=== PATIENT | female | born 1995 | race African-American/Black ===

== ENCOUNTER 2024-04-22 22:24 | Emergency (ER) | payer MEDICAID ==
[~2024-04-22] VITALS: Ht 167.6 cm; Wt 69.1 kg
[2024-04-22 22:54] VITALS: PULSE 86; RESP 14; O2SAT 100
[2024-04-22] MEDS: METOCLOPRAMIDE HCL 10 MG TAB PO ONE (22:56)
[2024-04-22 22:57] LABS: Basophils # (auto) 0 10 ^3/uL (0-0.2); Basophils % (auto) 0.3 % (0.0-2.0); Eosinophils # (auto) 0.1 10 ^3/uL (0-0.8); Eosinophils % (auto) 0.8 % (0.0-7.0); Hematocrit 33.1 % (36.0-46.0); Hemoglobin 11.2 g/dL (12.2-16.2); Lymphocytes # (auto) 2.1 10 ^3/uL (0.4-5.4); Lymphocytes % (auto) 27.7 % (10.0-50.0); Mean Corpuscular Hemoglobin 29.1 pg (28.0-32.0); Mean Corpuscular Hgb Conc. 33.8 g/dL (32.0-36.0); Mean Corpuscular Volume 86.2 fL (80.0-100.0); Monocytes # (auto) 0.6 10 ^3/uL (0-1.3); Monocytes % (auto) 8.1 % (0.0-12.0); Neutrophils # (auto) 4.7 10 ^3/uL (1.6-8.6); Neutrophils % (auto) 63.1 % (37.0-80.0); Platelet Count (auto) 387 10^3/uL (140-450); Red Blood Cells 3.84 10^6/uL (4.0-5.20); Red Cell Distribution Width 16.3 % (11.8-14.3); White Blood Cell 7.4 10^3/uL (4.4-10.8)
--- NOTE | 2024-04-22 22:57 | ED.PDOC ---
History of Present Illness HPI Comments 29 y/o F presents with c/o nausea, vomiting, and abdominal pain, today. Patient reports being 17x weeks , currently, and having unprovoked and sudden onset symptoms at around 1640, this evening. Patient comments on vomiting a total of 2x since onset and pain being around her suprapubic region and non- radiating that she describes it as "cramping" in quality. Patient endorses this being her first ([id number]) and having current care and routine ultrasound imaging. Patient endorses no recent injuries, stress, sick contact, travel, spoiled food, substance use/exposure, or sexual activity. Patient denies having any vaginal bleeding or discharge, hematemesis, diarrhea, fever, chills, or other associated symptoms or modifiers at this time. Chief Complaint: Abdominal Pain Time Seen by MD: 22:40 Primary Care Provider: NIDIA Reviewed Notes: Nurses Notes, Medications, Allergies Allergies: Coded Allergies: NO KNOWN ALLERGIES (Unverified , 08/02/11) Home Meds Active Scripts Metoclopramide Hcl (Reglan) 5 Mg Tab, 5 MG PO Q6HPRN PRN for 14 Days, #40 TAB Prov:CATA CHAVEZ MD 04/23/24 Information Source: Patient Mode of Arrival: Ambulatory Severity: Moderate Timing: Hours Duration: Intermittent Prehospital treatment: None Past Medical History PAST MEDICAL HISTORY: Denies Surgical History: Denies all surgeries YARN HANDLER History: Denies all YARN HANDLER Hx 1 Para 0 AB 0 LMP 12/14/23 Family History Family History: Unknown Social History Smoker: Non-Smoker Alcohol: Denies ETOH Use Drugs: Denies Drug Use Lives In: Home Constitutional: denies: chills, diaphoresis, fatigue, fever, malaise, sweats, weakness, others EENTM: denies: blurred vision, double vision, ear bleeding, ear discharge, ear drainage, ear pain, ear ringing, eye pain, eye redness, hearing loss, mouth pain, mouth swelling, nasal discharge, nose bleeding, nose congestion, nose pain, photophobia, tearing, throat pain, throat swelling, voice changes, others Respiratory: denies: cough, hemoptysis, orthopnea, SOB at rest, shortness of breath, SOB with excertion, stridor, wheezing, others Cardiovascular: denies: chest pain, dizzy spells, diaphoresis, Dyspnea on exertion, edema, irregular heart beat, left arm pain, lightheadedness, palpitations, PND, syncope, others Gastrointestinal: reports: abdominal pain, nausea, vomiting; denies: abdomen distended, blood streaked bowels, constipated, diarrhea, dysphagia, difficulty swallowing, hematemesis, melena, poor appetite, poor fluid intake, rectal bleeding, rectal pain, others Genitourinary: denies: abnormal vagina bleeding, burning, dyspareunia, dysuria, flank pain, frequency, hematuria, incontinence, pain, , vagina discharge, urgency, others Neurological: denies: dizziness, fainting, headache, left sided numbness, left sided weakness, numbness, paresthesia, pre-existing deficit, right sided numbness, right sided weakness, seizure, speech problems, tingling, tremors, weakness, others Musculoskeletal: denies: back pain, gout, joint pain, joint swelling, muscle pain, muscle stiffness, neck pain, others Integumetry: denies: bruises, change in color, change in hair/nails, dryness, laceration, lesions, lumps, rash, wounds, others Allergic/Immunocompromised: denies: Difficulty Healing, Frequent Infections, Hives, Itching, others Hematologic/Lymphatic: denies: anemia, blood clots, easy bleeding, easy bruising, swollen glands, others Endocrine: denies: excessive hunger, excessive sweating, excessive thirst, excessive urination, flushing, intolerance to cold, intolerance to heat, unexplained weight gain, unexplained weight loss, others Psychiatric: denies: anxiety, bipolar disorder, depression, hopeless, panic disorder, schizophrenia, sleepless, suicidal, others All Other Systems: Reviewed and Negative Physical Exam General Appearance: Mild Distress, Normal HEENT: Normal ENT Inspection, Pharynx Normal, TMs Normal Neck: Full Range of Motion, Non-Tender, Normal, Normal Inspection Respiratory: Chest Non-Tender, Lungs Clear, No Accessory Muscle Use, No Respiratory Distress, Normal Breath Sounds Cardiovascular: No Edema, No JVD, No Murmur, No Gallop, Normal Peripheral Pulses, Regular Rate/Rhythm Breast Exam: Deferred Gastrointestinal: Non Tender, Soft, Other (soft gravid nontender uterus) Genitalia: Deferred Pelvic: Deferred Rectal: Deferred Extremities: No calf tenderness, Normal capillary refill, Normal inspection, Normal range of motion, Non-tender, No pedal edema Musculoskeletal : Apperance: Normal Neurologic: Alert, dental mold maker II-XII nml as Tested, No Motor Deficits, Normal Affect, Normal Mood, No Sensory Deficits Cerebellar Function: Normal Reflexes: Normal Skin: Dry, Normal Color, Warm Lymphatic: No Adenopathy Was a procedure done? Was a procedure done?: No Differential Dx Considerations may include: , gastritis, gastroenteritis, viral syndrome, spoiled food X-Ray, Labs, Meds, VS Vital Signs Date Time Temp Pulse Resp B/P (MAP) Pulse Ox O2 Delivery O2 Flow Rate FiO2 04/23/24 01:05 97.9 84 15 110/75 (87) 100 97.9 04/22/24 22:54 86 14 100 Room Air* 0 21 04/22/24 22:54 98.4 86 14 106/71 (83) 100 98.4 04/22/24 22:28 98.2 93 17 107/79 (88) 100 Lab Test 04/22/24 22:40 04/22/24 22:31 Range/Units White Blood Count 7.4 4.4-10.8 10^3/uL Red Blood Count 3.84 L 4.0-5.20 10^6/uL Hemoglobin 11.2 L 12.2-16.2 g/dL Hematocrit 33.1 L 36.0-46.0 % Mean Corpuscular Volume 86.2 80.0-100.0 fL Mean Corpuscular Hemoglobin 29.1 28.0-32.0 pg Mean Corpuscular Hemoglobin Concent 33.8 32.0-36.0 g/dL Red Cell Distribution Width 16.3 H 11.8-14.3 % Platelet Count 387 140-450 10^3/uL Mean Platelet Volume 7.3 6.9-10.8 fL Neutrophils (%) (Auto) 63.1 37.0-80.0 % Lymphocytes (%) (Auto) 27.7 10.0-50.0 % Monocytes (%) (Auto) 8.1 0.0-12.0 % Eosinophils (%) (Auto) 0.8 0.0-7.0 % Basophils (%) (Auto) 0.3 0.0-2.0 % Neutrophils # (Auto) 4.7 1.6-8.6 10 ^3/uL Lymphocytes # (Auto) 2.1 0.4-5.4 10 ^3/uL Monocytes # (Auto) 0.6 0-1.3 10 ^3/uL Eosinophils # (Auto) 0.1 0-0.8 10 ^3/uL Basophils # (Auto) 0 0-0.2 10 ^3/uL Nucleated Red Blood Cells 0.0 % Sodium Level 138 136-145 mmol/L Potassium Level 3.6 3.5-5.1 mmol/L Chloride Level 106 98-107 mmol/L Carbon Dioxide Level 24 20-31 mmol/L Anion Gap 8 5-15 Blood Urea Nitrogen 8 L 9-23 mg/dL Creatinine 0.63 0.550-1.02 mg/dL Glomerular Filtration Rate Calc 125 >90 mL/min BUN/Creatinine Ratio 12.7 10.0-20.0 Serum Glucose 91 74-106 mg/dL Calcium Level 9.9 8.7-10.4 mg/dL Total Bilirubin 0.5 0.2-1.0 mg/dL Aspartate Amino Transferase (AST) 14 13-40 U/L Alanine Aminotransferase (ALT) < 9 7-40 U/L Alkaline Phosphatase 45 L 46-116 U/L Total Protein 7.1 5.7-8.2 g/dL Albumin 4.3 3.2-4.8 g/dL Lipase 41 12-53 U/L Urine Color Colorless Yellow Urine Clarity Turbid H Clear Urine pH 8.0 5.0-9.0 Urine Specific [place] 1.020 1.001-1.035 Urine Protein Trace H Negative Urine Ketones 3+ H Negative Urine Blood Negative Negative /uL Urine Nitrite Negative Negative Urine Bilirubin Negative Negative Urine Urobilinogen Normal Negative mg/dL Urine Leukocyte Esterase Negative Negative /uL Urine RBC 3 0 - 4 /hpf Urine WBC 2 0 - 5 /hpf Urine Squamous Epithelial Cells Few <5 /hpf Urine Amorphous Crystals Mod None Seen /hpf Urine Bacteria Few H None Seen /hpf Urine Mucus Few None Seen Urine Glucose Normal Normal mg/dL Current Medications Medications (Trade) Dose Ordered Sig/Karen Route Start Time Stop Time Status Last Admin Metoclopramide HCl (Reglan Tablet) 5 mg ONCE ONCE PO 04/22/24 22:45 04/22/24 22:46 DC 04/22/24 22:56 [place] [id number] Ph: [phone] DIAGNOSTIC IMAGING Diagnostic Imaging Report : [id number] Signed PATIENT: TK GARCIA ACCT: [id number] UNIT: [id number] : 1995 LOC: ER ROOM / BED: / AGE / SEX: 29 / F ADM STATUS: REG ER SERVICE 07 ORDERING PHYSICIAN: CATA CHAVEZ MD PROCEDURE(s): OBUS - OB ULTRASOUND COMP GTR 14 WKS REASON: pain, 17 wk ORDER NUMBER(s): [id number], ACCESSION NUMBER(s): [id number] LIMITED OB ULTRASOUND > 14 WKS: HISTORY: pain, 17 wk TECHNIQUE: Multiple real-time grayscale images of the gravid uterus with duplex Doppler color flow and M-mode spectral analysis. FINDINGS: IUP single live fetus at 19 weeks 0 days based on composite averages of the BPD, head circumference, abdominal circumference and femur length Estimated weight 254 grams heart rate 162 beats per minute presentation is cephalic. Placenta is anterior. Cervix measures 3.4 cm and appears closed. EDILIA is adequate. IMPRESSION: IUP single live fetus at 19 weeks 0 days AUA corresponding to an DEBBIE of September 17, 2024 ATED BY: MIMA ROBERT DO DICTATED DATE/TIME: 04/23/2450 SIGNED BY: MIMA ROBERT DO SIGNED DATE/TIME: 04/23/2450 CC: Time of 1ST Reevaluation: 23:10 Reevaluation 1ST: Unchanged Patient Education/Counseling: Diagnosis, Treatment Family Education/Counseling: No Family Present Additional Information I personally reviewed and interpreted the ultrasound and lab findings Departure 1 Departure Time of Disposition: 01:19 Impression: Primary Impression: 19 weeks gestation of Additional Impression: Nausea & vomiting Disposition: 01 HOME / SELF CARE / HOMELESS Condition: Stable e-Prescriptions Metoclopramide Hcl (Reglan) 5 Mg Tab 5 MG PO Q6HPRN PRN for 14 Days, #40 TAB Prov: CATA CHAVEZ MD 04/23/24 Discharged With: Self Critical Care Note Critical Care Time?: No Stability Stability form required: No Heart Score Heart Score: Heart Score Response (Comments) Value History N/A 0 EKG N/A 0 Age N/A 0 Risk Factors N/A 0 Troponin N/A 0 Total 0 I personally scribed for CATA CHAVEZ MD ([email or web address]) on 04/22/24 at 22:57. Electronically submitted by Serjio Daley ([email or web address]). I personally scribed for CATA CHAVEZ MD ([email or web address]) on 04/23/24 at 00:59. Electronically submitted by Serjio Dalye ([email or web address]). CATA CHAVEZ MD Apr 22, 2024 22:57
[2024-04-22] MEDS: ACETAMINOPHEN 500 MG TAB PO ONE (23:13)
[2024-04-22 23:16] LABS: Albumin 4.3 g/dL (3.2-4.8); Alkaline Phosphatase 45 U/L (46-116); Anion Gap 8 (5-15); Aspartate Aminotransferase 14 U/L (13-40); BUN/Creatinine Ratio 12.7 (10.0-20.0); Blood Urea Nitrogen 8 mg/dL (9-23); Calcium 9.9 mg/dL (8.7-10.4); Carbon Dioxide 24 mmol/L (20-31); Chloride 106 mmol/L (98-107); Glucose 91 mg/dL (74-106); Lipase 41 U/L (12-53); Potassium 3.6 mmol/L (3.5-5.1); Sodium 138 mmol/L (136-145)
[2024-04-22 23:17] LABS: Bilirubin, Total 0.5 mg/dL (0.2-1.0); Total Protein 7.1 g/dL (5.7-8.2)
[2024-04-22 23:25] LABS: Urine Amorphous Crystal MOD /hpf (None Seen); Urine Bacteria FEW /hpf (None Seen); Urine Blood Negative /uL (Negative); Urine Clarity Turbid (Clear); Urine Color Colorless (Yellow); Urine Mucus FEW (None Seen); Urine Protein, UAD TRACE (Negative); Urine Urobilinogen Normal (Negative); Urine WBC 2 /hpf (0 - 5)
[2024-04-22 23:31] LABS: Alanine Aminotransferase < 9 U/L (7-40)
--- NOTE | 2024-04-23 00:53 | DVH ---
LIMITED OB ULTRASOUND > 14 WKS: HISTORY: pain, 17 wk TECHNIQUE: Multiple real-time grayscale images of the gravid uterus with duplex Doppler color flow an d M-mode spectral analysis. FINDINGS: IUP single live fetus at 19 weeks 0 days based on composite averages of the BPD, head circumference, abdominal circumference and femur length Estimated weight 254 grams heart rate 162 beats per minute presentation is cephalic. Placenta is anterior. Cervix measures 3.4 cm and appears closed. EDILIA is adequate. IMPRESSION: IUP single live fetus at 19 weeks 0 days AUA corresponding to an DEBBIE of September 17, 2024
[2024-04-23] MEDS ORDERED: METO5TAB67 PO (01:04)
[2024-04-23 01:05] VITALS: BP 110/75; PULSE 84; RESP 15; TEMP 97.9; O2SAT 100
== END 2024-04-23 01:13 | disposition home or self-care (01) ==
LOC: ER 22:24
DX: O21.9 Vomiting of pregnancy, unspecified (principal); R10.9 Unspecified abdominal pain; Z3A.19 19 weeks gestation of pregnancy
CPT/HCPCS: 36415; 76805; 80053; 81001; 83690; 85025; 99284; J8597

== ENCOUNTER 2024-06-28 03:49 | Emergency (ER) | payer MEDICAID ==
[~2024-06-28] VITALS: Ht 170.2 cm; Wt 75.5 kg
[~2024-06-28 03:49] MED LIST: METO5TAB67 PO
[2024-06-28 03:50] VITALS: BP 121/80; PULSE 109; O2SAT 100
--- NOTE | 2024-06-28 04:08 | ED.PDOC ---
GI ASSESSMENT HPI Comments 29 year old female presents to the ED with a chief complaint of abdominal pain onset yesterday. Patient states she began experiencing abdominal pain, described as burning sensation, yesterday morning as well as nausea/vomiting. Patient woke up this morning and noticed blood in vomit. She is currently 28 weeks , went to labor and delivery prior to ED arrival and was cleared. P:0. Denies any past medical history as well as diarrhea, chest pain, shortness of breath, dysuria, hematuria. No other symptoms or modifying factors present at this time. Chief Complaint: Nausea/Vomiting Time Seen by MD: 03:57 Primary Care Provider: NIDIA Reviewed Notes: Medications, Allergies Allergies: Coded Allergies: NO KNOWN ALLERGIES (Unverified , 08/02/11) Home Meds Active Scripts Metoclopramide Hcl (Reglan) 5 Mg Tab, 5 MG PO Q6HPRN PRN for 14 Days, #40 TAB Prov:CATA CHAVEZ MD 04/23/24 Information Source: Patient Mode of Arrival: Ambulatory Timing: Hours Duration: Since onset Prehospital treatment: None Quality: Burning Vomitus: Streaking Blood Severity: Moderate Recent: None Recent Hx of: Current (28 weeks) Pain Location: Epigastric, Periumbilical Associated sign and symptoms: Nausea, Vomiting, Hematemesis Past Medical History PAST MEDICAL HISTORY: Denies Surgical History: Denies all surgeries HISTORIC SITES REGISTRAR History: Denies all HISTORIC SITES REGISTRAR Hx Family History Family History: Unknown Social History Smoker: Non-Smoker Alcohol: Denies ETOH Use Drugs: Denies Drug Use Lives In: Home Constitutional: denies: chills, diaphoresis, fatigue, fever, malaise, sweats, weakness, others EENTM: denies: blurred vision, double vision, ear bleeding, ear discharge, ear drainage, ear pain, ear ringing, eye pain, eye redness, hearing loss, mouth pain, mouth swelling, nasal discharge, nose bleeding, nose congestion, nose pain, photophobia, tearing, throat pain, throat swelling, voice changes, others Respiratory: denies: cough, hemoptysis, orthopnea, SOB at rest, shortness of breath, SOB with excertion, stridor, wheezing, others Cardiovascular: denies: chest pain, dizzy spells, diaphoresis, Dyspnea on exertion, edema, irregular heart beat, left arm pain, lightheadedness, palpita tions, PND, syncope, others Gastrointestinal: reports: abdominal pain, hematemesis, nausea, vomiting; denies: abdomen distended, blood streaked bowels, constipated, diarrhea, dysphagia, difficulty swallowing, melena, poor appetite, poor fluid intake, rectal bleeding, rectal pain, others Genitourinary: denies: abnormal vagina bleeding, burning, dyspareunia, dysuria, flank pain, frequency, hematuria, incontinence, pain, , vagina discharge, urgency, others Neurological: denies: dizziness, fainting, headache, left sided numbness, left sided weakness, numbness, paresthesia, pre-existing deficit, right sided numbness, right sided weakness, seizure, speech problems, tingling, tremors, weakness, others Musculoskeletal: denies: back pain, gout, joint pain, joint swelling, muscle pain, muscle stiffness, neck pain, others Integumetry: denies: bruises, change in color, change in hair/nails, dryness, laceration, lesions, lumps, rash, wounds, others Allergic/Immunocompromised: denies: Difficulty Healing, Frequent Infections, Hives, Itching, others Hematologic/Lymphatic: denies: anemia, blood clots, easy bleeding, easy bruising, swollen glands, others Endocrine: denies: excessive hunger, excessive sweating, excessive thirst, excessive urination, flushing, intolerance to cold, intolerance to heat, unexplained weight gain, unexplained weight loss, others Psychiatric: denies: anxiety, bipolar disorder, depression, hopeless, panic disorder, schizophrenia, sleepless, suicidal, others All Other Systems: Reviewed and Negative Physical Exam General Appearance: No Apparent Distress, Normal HEENT: Normal ENT Inspection, Pharynx Normal, TMs Normal Neck: Full Range of Motion, Non-Tender, Normal, Normal Inspection Respiratory: Chest Non-Tender, Lungs Clear, No Accessory Muscle Use, No Respiratory Distress, Normal Breath Sounds Cardiovascular: No Edema, No JVD, No Murmur, No Gallop, Normal Peripheral Pulses, Regular Rate/Rhythm Breast Exam: Deferred Gastrointestinal: No Organomegaly, No Pulsatile Mass, Normal Bowel Sounds, Tenderness Genitalia: Deferred Pelvic: Deferred Rectal: Deferred Extremities: No calf tenderness, Normal capillary refill, Normal inspection, Normal range of motion, Non-tender, No pedal edema Musculoskeletal : Apperance: Normal Neurologic: Alert, associate doctor II-XII nml as Tested, No Motor Deficits, Normal Affect, Normal Mood, No Sensory Deficits Cerebellar Function: Normal Reflexes: Normal Skin: Dry, Normal Color, Warm Lymphatic: No Adenopathy Was a procedure done? Was a procedure done?: No GI differential Dx Differential Diagnosis: Gastroenteritis, Dehydration, Electrolyte Imbalance, Food Poisoning, Hypovolemia, Malnutrition X-Ray, Labs, Meds, VS Vital Signs Date Time Temp Pulse Resp B/P (MAP) Pulse Ox O2 Delivery O2 Flow Rate FiO2 06/28/24 03:50 98.3 109 18 121/80 (94) 100 Lab Test 06/28/24 04:04 06/28/24 04:00 Range/Units White Blood Count 10.1 4.4-10.8 10^3/uL Red Blood Count 3.47 L 4.0-5.20 10^6/uL Hemoglobin 9.4 L 12.2-16.2 g/dL Hematocrit 29.3 L 36.0-46.0 % Mean Corpuscular Volume 84.2 80.0-100.0 fL Mean Corpuscular Hemoglobin 27.2 L 28.0-32.0 pg Mean Corpuscular Hemoglobin Concent 32.3 32.0-36.0 g/dL Red Cell Distribution Width 15.8 H 11.8-14.3 % Platelet Count 368 140-450 10^3/uL Mean Platelet Volume 7.4 6.9-10.8 fL Neutrophils (%) (Auto) 62.5 37.0-80.0 % Lymphocytes (%) (Auto) 26.5 10.0-50.0 % Monocytes (%) (Auto) 9.7 0.0-12.0 % Eosinophils (%) (Auto) 0.8 0.0-7.0 % Basophils (%) (Auto) 0.5 0.0-2.0 % Neutrophils # (Auto) 6.3 1.6-8.6 10 ^3/uL Lymphocytes # (Auto) 2.7 0.4-5.4 10 ^3/uL Monocytes # (Auto) 1.0 0-1.3 10 ^3/uL Eosinophils # (Auto) 0.1 0-0.8 10 ^3/uL Basophils # (Auto) 0 0-0.2 10 ^3/uL Nucleated Red Blood Cells 0.0 % Sodium Level 136 136-145 mmol/L Potassium Level 3.8 3.5-5.1 mmol/L Chloride Level 105 98-107 mmol/L Carbon Dioxide Level 23 20-31 mmol/L Anion Gap 8 5-15 Blood Urea Nitrogen 5 L 9-23 mg/dL Creatinine 0.55 0.550-1.02 mg/dL Glomerular Filtration Rate Calc 129 >90 mL/min BUN/Creatinine Ratio 9.1 L 10.0-20.0 Serum Glucose 93 74-106 mg/dL Calcium Level 10.1 8.7-10.4 mg/dL Total Bilirubin 0.5 0.2-1.0 mg/dL Aspartate Amino Transferase (AST) 34 13-40 U/L Alanine Aminotransferase (ALT) 26 7-40 U/L Alkaline Phosphatase 97 46-116 U/L Total Protein 6.8 5.7-8.2 g/dL Albumin 3.8 3.2-4.8 g/dL Urine Color Light-yellow Yellow Urine Clarity Turbid H Clear Urine pH 6.5 5.0-9.0 Urine Specific [place] 1.021 1.001-1.035 Urine Protein Trace H Negative Urine Ketones Negative Negative Urine Blood Negative Negative /uL Urine Nitrite Negative Negative Urine Bilirubin Negative Negative Urine Urobilinogen Normal Negative mg/dL Urine Leukocyte Esterase Trace Negative /uL Urine RBC 4 0 - 4 /hpf Urine Microscopic WBC 4 0-5 /HPF Urine Squamous Epithelial Cells Few <5 /hpf Urine Calcium Oxalate Crystals Few None Seen Urine Bacteria Few H None Seen /hpf Urine Mucus Few None Seen Urine Glucose Normal Normal mg/dL Current Medications Medications (Trade) Dose Ordered Sig/Karen Route Start Time Stop Time Status Last Admin Sodium Chloride 1,000 ml @ 1,000 mls/hr Q1H ONCE IV 06/28/24 04:00 06/28/24 04:59 DC 06/28/24 04:58 Ondansetron HCl (Zofran) 4 mg ONCE ONCE IV 06/28/24 04:00 06/28/24 04:01 DC 06/28/24 04:59 Famotidine (Pepcid Injection) 20 mg ONCE ONCE IV 06/28/24 04:00 06/28/24 04:01 DC 06/28/24 04:58 Time of 1ST Reevaluation: 04:27 Reevaluation 1ST: Unchanged Patient Education/Counseling: Diagnosis, Treatment, Prognosis Family Education/Counseling: No Family Present Additional Information The following tests were ordered, and results were reviewed by me: CBC, CMP, UA I discussed treatment and results with medical personnel, patient Departure 1 Departure Time of Disposition: 05:02 (Patient likely with viral gastroenteritis. Patient is now feeling better after receiving fluids and Zofran. We will discharge patient home with outpatient follow up) Impression: Primary Impression: Acute gastroenteritis Additional Impression: Qualified Codes: Z3A.28 - 28 weeks gestation of Disposition: 01 HOME / SELF CARE / HOMELESS Condition: Stable Additional Instructions: You likely have gastroenteritis. It is important to stay well hydrated and well rested. This usually resolves within 1 week. If your symptoms worsen or you have any other concerns please return to the ER. Discharged With: Self Critical Care Note Critical Care Time?: No Stability Stability form required: No I personally scribed for DULCE CORRALES MD ([email or web address]) on 06/28/24 at 04:08. Electronically submitted by Mary Lopez ([email or web address]). I personally scribed for DULCE CORRALES MD ([email or web address]) on 06/28/24 at 04:08. Electronically submitted by Mary Lopez ([email or web address]). DULCE CORRALES MD Jun 28, 2024 04:08
[2024-06-28 04:14] LABS: Basophils # (auto) 0 10 ^3/uL (0-0.2); Basophils % (auto) 0.5 % (0.0-2.0); Eosinophils # (auto) 0.1 10 ^3/uL (0-0.8); Eosinophils % (auto) 0.8 % (0.0-7.0); Hematocrit 29.3 % (36.0-46.0); Hemoglobin 9.4 g/dL (12.2-16.2); Lymphocytes # (auto) 2.7 10 ^3/uL (0.4-5.4); Lymphocytes % (auto) 26.5 % (10.0-50.0); Mean Corpuscular Hemoglobin 27.2 pg (28.0-32.0); Mean Corpuscular Hgb Conc. 32.3 g/dL (32.0-36.0); Mean Corpuscular Volume 84.2 fL (80.0-100.0); Monocytes % (auto) 9.7 % (0.0-12.0); Neutrophils # (auto) 6.3 10 ^3/uL (1.6-8.6); Neutrophils % (auto) 62.5 % (37.0-80.0); Platelet Count (auto) 368 10^3/uL (140-450); Red Blood Cells 3.47 10^6/uL (4.0-5.20); Red Cell Distribution Width 15.8 % (11.8-14.3); White Blood Cell 10.1 10^3/uL (4.4-10.8)
[2024-06-28 04:33] LABS: Urine Bacteria FEW /hpf (None Seen); Urine Blood Negative /uL (Negative); Urine Clarity Turbid (Clear); Urine Color Light-Yellow (Yellow); Urine Mucus FEW (None Seen); Urine Protein, UAD TRACE (Negative); Urine Specific Gravity 1.021 (1.001-1.035); Urine Squamous Epithelial Cell FEW /hpf (<5); Urine Urobilinogen Normal (Negative); Urine WBC 4 /HPF (0-5); Urine pH 6.5 (5.0-9.0)
[2024-06-28 04:35] LABS: Alanine Aminotransferase 26 U/L (7-40); Albumin 3.8 g/dL (3.2-4.8); Alkaline Phosphatase 97 U/L (46-116); Anion Gap 8 (5-15); Aspartate Aminotransferase 34 U/L (13-40); BUN/Creatinine Ratio 9.1 (10.0-20.0); Calcium 10.1 mg/dL (8.7-10.4); Carbon Dioxide 23 mmol/L (20-31); Chloride 105 mmol/L (98-107); Glucose 93 mg/dL (74-106); Potassium 3.8 mmol/L (3.5-5.1); Sodium 136 mmol/L (136-145)
[2024-06-28 04:36] LABS: Bilirubin, Total 0.5 mg/dL (0.2-1.0); Blood Urea Nitrogen 5 mg/dL (9-23); Total Protein 6.8 g/dL (5.7-8.2)
[2024-06-28] MEDS: FAMOTIDINE (10MG/ML) 2ML VL IV ONE (04:58)
[2024-06-28] MEDS: SODIUM CHLORIDE 0.9% 1,000 ML IV ONE (04:58)
[2024-06-28] MEDS: ACETAMINOPHEN 325 MG TAB PO ONE (04:59)
[2024-06-28] MEDS: ONDANSETRON HCL 4 MG/2 ML VIAL IV ONE (04:59)
[2024-06-28 05:15] VITALS: RESP 16
== END 2024-06-28 05:35 | disposition home or self-care (01) ==
LOC: ER 03:49
DX: O99.612 Diseases of the digestive system complicating pregnancy, second trimester (principal); K52.9 Noninfective gastroenteritis and colitis, unspecified; Z79.899 Other long term (current) drug therapy; Z3A.28 28 weeks gestation of pregnancy
CPT/HCPCS: 36415; 80053; 81001; 85025; 96361; 96374; 96375; 99284; J2405; J3490; J7030

== ENCOUNTER 2024-12-20 18:14 | Emergency (ER) | payer MEDICAID ==
[~2024-12-20] VITALS: Ht 170.2 cm; Wt 74.7 kg
--- NOTE | 2024-12-20 18:30 | ED.PDOC ---
History of Present Illness HPI Comments 29 year old female that is noted to be presents to the ED for the c/c of a Left Temporal Migraine w/ associated N/V, and Hot flashes. Pt states that her symptoms have been onset for the past 3x days, and notes on taking 600mg of Ibuprofen, with no alleviating factors. Pt denies any CP, ABD pain, Dysuria, or any other modifying factors or symptoms at this time. Time Seen by MD: 18:27 Primary Care Provider: NIDIA Reviewed Notes: Nurses Notes, Medications, Allergies Allergies: Coded Allergies: NO KNOWN ALLERGIES (Unverified , 08/02/11) Home Meds Active Scripts Metoclopramide Hcl (Reglan) 5 Mg Tab, 5 MG PO Q6HP PRN, #30 TAB Prov:CATA CHAVEZ MD 12/20/24 Gabapentin (Once-Daily) (Gabapentin) 300 Mg Tab, 300 MG PO Q6HP PRN, #30 TAB Prov:CATA CHAVEZ MD 12/20/24 Metoclopramide Hcl (Reglan) 5 Mg Tab, 5 MG PO Q6HPRN PRN for 14 Days, #40 TAB Prov:CATA CHAVEZ MD 04/23/24 Information Source: Patient Mode of Arrival: Ambulatory Severity: Mild Timing: Hours Duration: Since onset, Days Prehospital treatment: None Past Medical History PAST MEDICAL HISTORY: Denies Surgical History: Denies all surgeries [employer]NAGEMENT History: Denies all [employer]OR [employer]NAGEMENT Hx Family History Family History: Unknown Social History Smoker: Non-Smoker Alcohol: Denies ETOH Use Drugs: Denies Drug Use Lives In: Home Constitutional: denies: chills, diaphoresis, fatigue, fever, malaise, sweats, weakness, others EENTM: denies: blurred vision, double vision, ear bleeding, ear discharge, ear drainage, ear pain, ear ringing, eye pain, eye redness, hearing loss, mouth pain, mouth swelling, nasal discharge, nose bleeding, nose congestion, nose pain, photophobia, tearing, throat pain, throat swelling, voice changes, others Respiratory: denies: cough, hemoptysis, orthopnea, SOB at rest, shortness of breath, SOB with excertion, stridor, wheezing, others Cardiovascular: denies: chest pain, dizzy spells, diaphoresis, Dyspnea on exertion, edema, irregular heart beat, left arm pain, lightheadedness, palpitations, PND, syncope, others Gastrointestinal: reports: nausea, vomiting; denies: abdomen distended, abd ominal pain, blood streaked bowels, constipated, diarrhea, dysphagia, difficulty swallowing, hematemesis, melena, poor appetite, poor fluid intake, rectal bleeding, rectal pain, others Genitourinary: denies: abnormal vagina bleeding, burning, dyspareunia, dysuria, flank pain, frequency, hematuria, incontinence, pain, , vagina discharge, urgency, others Neurological: reports: headache; denies: dizziness, fainting, left sided numbness, left sided weakness, numbness, paresthesia, pre-existing deficit, right sided numbness, right sided weakness, seizure, speech problems, tingling, tremors, weakness, others Musculoskeletal: denies: back pain, gout, joint pain, joint swelling, muscle pain, muscle stiffness, neck pain, others Integumetry: denies: bruises, change in color, change in hair/nails, dryness, laceration, lesions, lumps, rash, wounds, others Allergic/Immunocompromised: denies: Difficulty Healing, Frequent Infections, Hives, Itching, others Hematologic/Lymphatic: denies: anemia, blood clots, easy bleeding, easy bruising, swollen glands, others Endocrine: denies: excessive hunger, excessive sweating, excessive thirst, excessive urination, flushing, intolerance to cold, intolerance to heat, unexplained weight gain, unexplained weight loss, others Psychiatric: denies: anxiety, bipolar disorder, depression, hopeless, panic disorder, schizophrenia, sleepless, suicidal, others All Other Systems: Reviewed and Negative Physical Exam General Appearance: Mild Distress, Normal HEENT: Normal ENT Inspection, Pharynx Normal, TMs Normal Neck: Full Range of Motion, Non-Tender, Normal, Normal Inspection Respiratory: Chest Non-Tender, Lungs Clear, No Accessory Muscle Use, No Respiratory Distress, Normal Breath Sounds Cardiovascular: No Edema, No JVD, No Murmur, No Gallop, Normal Peripheral Pulses, Regular Rate/Rhythm Breast Exam: Deferred Gastrointestinal: Non Tender, No Pulsatile Mass, Normal Bowel Sounds, Soft Genitalia: Deferred Pelvic: Deferred Rectal: Deferred Extremities: No calf tenderness, Normal capillary refill, Normal inspection, Normal range of motion, Non-tender, No pedal edema Musculoskeletal : Apperance: Normal Neurologic: Alert, No Motor Deficits, Normal Affect, Normal Mood, No Sensory Deficits Cerebellar Function: Normal Reflexes: Normal Skin: Dry, Normal Color, Warm Lymphatic: No Adenopathy Was a procedure done? Was a procedure done?: No Differential Dx Considerations may include: Differential diagnosis includes but not limited to: Migraine, tension headache, intracranial hemorrhage, subarachnoid hemorrhage, cluster headache, meningitis and others X-Ray, Labs, Meds, VS Vital Signs Date Time Temp Pulse Resp B/P (MAP) Pulse Ox O2 Delivery O2 Flow Rate FiO2 12/20/24 20:20 98.3 66 16 103/66 (78) 99 98.3 12/20/24 18:45 71 12 98 Room Air* 0 21 12/20/24 18:35 98.1 106 20 154/77 (102) 97 98.1 Current Medications Medications (Trade) Dose Ordered Sig/Karen Route Start Time Stop Time Status Last Admin Diphenhydramine HCl (Benadryl Injection) 50 mg ONCE ONCE IM 12/20/24 18:30 12/20/24 18:31 DC 12/20/24 18:58 Metoclopramide HCl (Reglan Injection) 10 mg ONCE ONCE IM 12/20/24 18:30 12/20/24 18:31 DC 12/20/24 18:58 Acetaminophen (Tylenol Tablet) 1,000 mg ONCE ONCE PO 12/20/24 18:30 12/20/24 18:31 DC 12/20/24 18:57 Time of 1ST Reevaluation: 18:57 Reevaluation 1ST: Unchanged Patient Education/Counseling: Diagnosis, Treatment, Need For Follow Up Family Education/Counseling: No Family Present SEPSIS Sepsis Screen Vital Signs Date Time Temp Pulse Resp B/P (MAP) Pulse Ox O2 Delivery O2 Flow Rate FiO2 12/20/24 20:20 98.3 66 16 103/66 (78) 99 98.3 12/20/24 18:45 71 12 98 Room Air* 0 21 12/20/24 18:35 98.1 106 20 154/77 (102) 97 98.1 Medications Medications Dose Ordered Sig/Karen Route Start Time Stop Time Status Last Admin Dose Admin Acetaminophen 1,000 mg ONCE ONCE PO 12/20/24 18:30 12/20/24 18:31 DC 12/20/24 18:57 Diphenhydramine HCl 50 mg ONCE ONCE IM 12/20/24 18:30 12/20/24 18:31 DC 12/20/24 18:58 Metoclopramide HCl 10 mg ONCE ONCE IM 12/20/24 18:30 12/20/24 18:31 DC 12/20/24 18:58 Departure 1 Departure Time of Disposition: 21:00 Impression: Primary Impression: Migraine headache Disposition: HOME / SELF CARE / HOMELESS Condition: Stable e-Prescriptions Metoclopramide Hcl (Reglan) 5 Mg Tab 5 MG PO Q6HP PRN, #30 TAB Prov: CATA CHAVEZ MD 12/20/24 Gabapentin (Once-Daily) (Gabapentin) 300 Mg Tab 300 MG PO Q6HP PRN, #30 TAB Prov: CATA CHAVEZ MD 12/20/24 Discharged With: Self Critical Care Note Critical Care Time?: No Stability Stability form required: No Heart Score Heart Score: Heart Score Response (Comments) Value History N/A 0 EKG N/A 0 Age N/A 0 Risk Factors N/A 0 Troponin N/A 0 Total 0 I personally scribed for CATA CHAVEZ MD ([email or web address]) on 12/20/24 at 18:30. Electronically submitted by Jeevan Tomlin ([email or web address]). CATA CHAVEZ MD Dec 20, 2024 18:30
[2024-12-20 18:45] VITALS: PULSE 71; RESP 12; O2SAT 98
[2024-12-20] MEDS: ACETAMINOPHEN 325 MG TAB PO ONE (18:57)
[2024-12-20] MEDS: METOCLOPRAMIDE HCL 5MG/ml INJ 2ml VIAL IM ONE (18:58)
[2024-12-20] MEDS: diphenhdrAMINE HCL 50 MG/1 ML VL IM ONE (18:58)
[2024-12-20] MEDS ORDERED: METO5TAB67 PO (19:55)
[2024-12-20] MEDS ORDERED: GABA300T4 PO (19:55)
[2024-12-20 20:20] VITALS: BP 103/66; PULSE 66; RESP 16; TEMP 98.3; O2SAT 99
== END 2024-12-20 20:25 | disposition home or self-care (01) ==
LOC: ER 18:14
DX: G43.909 Migraine, unspecified, not intractable, without status migrainosus (principal)
CPT/HCPCS: 96372; 99284; J1200; J2765